=== PATIENT | female | born 2000 | race Two or more races ===

== ENCOUNTER 2023-12-15 19:02 | Emergency (ER) | payer MEDICAID, OTHER ==
[~2023-12-15] VITALS: Ht 162.6 cm; Wt 81.0 kg
[2023-12-15 19:31] VITALS: BP 121/84; PULSE 129; RESP 20; O2SAT 97
== END 2023-12-15 20:44 | disposition left against medical advice (07) ==
LOC: ER 19:02
DX: R42 Dizziness and giddiness (principal); R11.2 Nausea with vomiting, unspecified; Z53.21 Procedure and treatment not carried out due to patient leaving prior to being seen by health care provider
CPT/HCPCS: 87426; 87804